=== PATIENT | female | born 1960 | race Caucasian/White ===

== ENCOUNTER → 2018-06-25 08:26 | Outpatient (CLI) | payer MEDICARE, MEDICAID ==
[2018-06-25 09:28] LABS: ALBUMIN 3.7 g/dL (3.4-5.0); BILIRUBIN - DIRECT 0.06 mg/dL (0.00-0.30); BILIRUBIN - INDIRECT 0.15 mg/dL (0.00-1.00); BILIRUBIN - TOTAL 0.21 mg/dL (0.2-1.3); PROTEIN - SERUM 7.2 g/dL (6.4-8.2)
== END | disposition home or self-care (01) ==
LOC: D.US 08:26
PROVIDERS: Internal Medicine Gastroenterology
DX: K76.0 Fatty (change of) liver, not elsewhere classified (principal)

== ENCOUNTER 2018-08-31 09:36 | Day surgery (SDC) | payer MEDICARE, MEDICAID ==
[~2018-08-31] VITALS: Ht 157.5 cm; Wt 73.2 kg
--- NOTE | ~2018-08-31 | OP ---
PATIENT NAME: MERCY NOVOA MEDICAL RECORD: [id number] :58 LOCATION:D.[facility] ADMISSION DATE: SURGEON: MANDIE MUNOZ MD DATE OF OPERATION: 08/31/2018 PROCEDURE: Colonoscopy with polypectomy, colonoscopy with biopsy. VENDING MECHANIC: Mandie Munoz MD SCOPE: Olympus video colonoscope. MEDICATIONS: Per TIVA anesthesia. The patient received 200 mg of propofol for this procedure, O2 at 2-4 liters. INDICATION FOR THE PROCEDURE: Chronic diarrhea, positive family history of colon cancer in the patient's sister, positive personal history of colon cancer in the patient, status post a subtotal colectomy with an ileoanal anastomosis 08/2016, Crohn disease of the colon diagnosed in 2013. FINDINGS: Informed consent was given. The patient was made comfortable with the above medications. After reaching an adequate level of sedation by slow IV push, the patient was placed on her left side. The rectal exam revealed good sphincter tone. No fissures or fistulas were appreciated. No external skin tags were seen. The colonoscope was advanced at least 20 cm until reaching the ileoanal anastomosis. We then proceeded to explore approximately 30 cm of small bowel, which was felt to be normal. On withdrawal of the scope, mucosa was carefully inspected. At the ileoanal anastomosis, suture lines were appreciated. The patient's rectal vault was significant for minimal inflammation and biopsies were obtained. The tissue, however, was very friable and with passage of the scope, had a slight amount of bleeding. At the recto-anal area, some raised tissue was appreciated which did appear to be polypoid in nature and cold, then hot biopsy forceps were used to obtain tissue for pathological review. Approximately 2 sites were biopsied. No internal hemorrhoids were noted. The scope was then withdrawn. IMPRESSION: 1. Mild rectal inflammation, biopsied. The patient does have a history of Crohn disease, but no active Crohn's was appreciated; however, this would be a pathologist determination. 2. The small bowel was intubated and explored for approximately 30-40 cm and normal mucosa was noted. 3. A total of 20 cm of colonic mucosa until reaching the ileoanal anastomosis. 4. Raised polypoid mucosa at the recto-anal junction. This was biopsied initially with cold biopsies to get better tissue samples and then hot biopsy forceps were used. This area did bleed very freely and the area was photocoagulated a couple of times until hemostasis was achieved. PLAN: 1. The patient should avoid all aspirin and anti-inflammatory drugs times 14 days. 2. She should have a soft diet, keep her stools soft and bulky, avoid constipation and diarrhea. 3. Use baby wipes for cleansing after bowel movements, toilet tissue might be to abrasive at this time. OPERATIVE REPORT [id number] [facility] NOVOA 4. We will check the path report. TRANSINT:[id number] Voice Confirmation ID: [id number] DOCUMENT ID: [id number] MANDIE MUNOZ MD at 1304 CC: SABRINA STOVER MD and MEL HANCOCK MD [id number] DICTATION DATE: 08/31/18 1305 MAINTENANCE MACHINIST: 08/31/18 1322 [facility] SDC 08/31/18 [id number] [place] [address]
[2018-08-31 10:02] LABS: HEMATOCRIT 38.4 % (36.0-48.0); HEMOGLOBIN 12.8 g/dL (12-16); MCH 28.3 pg (26.0-34.0); MCHC 33.3 g/dL (31.0-37.0); MEAN PLATELET VOLUME 10.7 fL (7.4-10.4); RBC 4.52 10x6/uL (4.00-5.40); RDW 14.5 % (11.5-14.5)
[2018-08-31 10:13] LABS: APTT 24.5 SECONDS (22.8-39.4); CALC OSMOLALITY 278 mosm/kg (275-300); CALCIUM 9.2 mg/dL (8.5-10.1); CARBON DIOXIDE 27.9 mmol/L (21.0-32.0); CHLORIDE - SERUM 102 mmol/L (98-107); CREATININE - SERUM 0.8 mg/dL (0.6-1.3); GLUCOSE 119 mg/dL (74-106); INR 0.97 (0.85-1.17); POTASSIUM - SERUM 3.9 mmol/L (3.5-5.1); PROTIME 12.5 SECONDS (11.6-15.0); SODIUM 140 mmol/L (136-145); UREA NITROGEN 9 mg/dL (7-18); eGFR NON AFRICAN AMERICAN 78 mL/min (90-120)
[2018-08-31] MEDS ORDERED: LOVENOX80 MG/0.8 SC (10:48)
[2018-08-31] MEDS ORDERED: COUMADIN5 MG (10:48)
[2018-08-31] MEDS ORDERED: ZOCOR40 MG PO (10:49)
[2018-08-31] MEDS ORDERED: ZOLOFT100 MG PO (10:50)
[2018-08-31] MEDS ORDERED: FENOFIBRATE160 MG PO (10:50)
[2018-08-31] MEDS ORDERED: SYMBICORT 16010.2 GM (10:51)
[2018-08-31] MEDS ORDERED: METFORMIN HCL500 M1 PO (10:51)
[2018-08-31 11:03] VITALS: Ht 157.5 cm; Wt 73.2 kg
== END 2018-08-31 13:55 | disposition home or self-care (01) ==
LOC: D.OPS 09:36
PROVIDERS: Anesthesiology
DX: K62.1 Rectal polyp (principal); K62.89 Other specified diseases of anus and rectum

== ENCOUNTER 2019-02-15 11:12 | Day surgery (SDC) | payer MEDICARE, MEDICAID ==
[~2019-02-15] VITALS: Ht 157.5 cm; Wt 75.5 kg
--- NOTE | ~2019-02-15 | OP ---
PATIENT NAME: MERCY NOVOA MEDICAL RECORD: [id number] :58 LOCATION:D.OPS ADMISSION DATE: SURGEON: LEIDY CORONA MD DATE OF OPERATION: 02/15/2019 PREOPERATIVE DIAGNOSES: 1. Questionable history of Crohn's disease. 2. History of colon cancer. 3. History of anorectal biopsies, which revealed benign mucosa with hypermucinous and serrated epithelial changes with minimal acute inflammation. There were fragments of minimally atypical epithelium. POSTOPERATIVE DIAGNOSES: 1. Questionable history of Crohn's disease. 2. History of colon cancer. 3. History of anorectal biopsies, which revealed benign mucosa with hypermucinous and serrated epithelial changes with minimal acute inflammation. There were fragments of minimally atypical epithelium. PROCEDURES: Flexible proctoscopy with biopsies and then hemostasis utilizing the argon plasma breakdown person with the right colon setting in the forced mode. SURGEON: Leidy Corona MD ARTIFICIAL LEATHER CALENDER OPERATOR: None. BLOOD LOSS: Minimal. ANESTHESIA: IV sedation. COMPLICATIONS: None. The risks, possible complications, and alternatives to the procedure were explained to the patient. She elects to proceed. ENDOSCOPIC COURSE: The patient was conveyed to the endoscopy suite electively on 02/15/2019. IV sedation was induced by the anesthesia staff. The patient was placed in the Puente position. A digital rectal examination was performed. A colonoscope was inserted through the anus. It was easily advanced to the ileorectal anastomosis, which was a low anastomosis. A retroflexed view was obtained. I noted the abnormal appearing anorectal tissue and multiple biopsies were obtained. The biopsy sites were made hemostatic with the argon plasma breakdown person. I then unretroflexed the scope and removed it under direct vision. I will see the patient in my office in 2-3 weeks. I am going to obtain an inflammatory bowel disease panel. I do not believe that this tissue represents a recurrent malignancy and more likely represents changes due to Crohn's disease. The patient is going to be dismissed home on Flagyl. I would like her to continue with Lovenox for another 2 days and then she can restart her Coumadin. TRANSINT:[id number] Voice Confirmation ID: [id number] DOCUMENT ID: [id number] OPERATIVE REPORT [id number] MER[facility] NOVOA LEIDY CORONA MD CC: RD BAILEY KOTA, MANJUSHA MD and MEL HANCOCK MD [id number] DICTATION DATE: 02/15/19 1614 VASCULAR PHYSICIAN: 02/15/191950 [facility] SDC 02/15/19 [facility] [address] [place] [address]
[~2019-02-15 11:12] MED LIST: COUMADIN5 MG; FENOFIBRATE160 MG PO; LOVENOX80 MG/0.8 SC; METFORMIN HCL500 M1 PO; SYMBICORT 16010.2 GM; ZOCOR40 MG PO; ZOLOFT100 MG PO
[2019-02-15 12:00] LABS: BASOPHILS 0.5 % (0-2); EOSINOPHILS 2.3 % (0-7); HEMOGLOBIN 12.1 g/dL (12-16); IMMATURE GRANULOCYTES 0.2 % (0-5); LYMPHOCYTES 22.2 % (15-50); MCH 29.4 pg (26.0-34.0); MCHC 33.6 g/dL (31.0-37.0); MCV 87.6 fL (80.0-100.0); MEAN PLATELET VOLUME 10.7 fL (7.4-10.4); MONOCYTES 4.2 % (2-11); NEUTROPHILS 70.6 % (40-80); PLATELET COUNT 224 10x3/uL (130-400); RBC 4.11 10x6/uL (4.00-5.40); RDW 13.7 % (11.5-14.5); WBC 6.7 10x3/uL (4.8-10.8)
[2019-02-15 12:10] LABS: CALC OSMOLALITY 277 mosm/kg (275-300); CARBON DIOXIDE 29.9 mmol/L (21.0-32.0); CHLORIDE - SERUM 103 mmol/L (98-107); CREATININE - SERUM 0.7 mg/dL (0.6-1.3); GLUCOSE 104 mg/dL (74-106); POTASSIUM - SERUM 3.6 mmol/L (3.5-5.1); SODIUM 140 mmol/L (136-145); UREA NITROGEN 10 mg/dL (7-18); eGFR NON AFRICAN AMERICAN 90 mL/min (90-120)
[2019-02-15 12:11] LABS: INR 1.01 (0.85-1.17); PROTIME 12.8 SECONDS (11.6-15.0)
[2019-02-15 12:42] VITALS: BP 133/67; Ht 157.5 cm; Wt 75.5 kg
== END 2019-02-15 17:10 | disposition home or self-care (01) ==
LOC: D.OPS 11:12
PROVIDERS: Anesthesiology; ATTEND Surgery
DX: Z85.038 Personal history of other malignant neoplasm of large intestine (principal); K62.89 Other specified diseases of anus and rectum; Z90.49 Acquired absence of other specified parts of digestive tract; Z01.812 Encounter for preprocedural laboratory examination

== ENCOUNTER → 2019-03-29 15:26 | Outpatient (CLI) | payer MEDICARE, MEDICAID ==
[2019-02-15 12:42] VITALS: BMI 30.4
== END | disposition home or self-care (01) ==
LOC: D.US 15:26
PROVIDERS: ATTEND Surgery
DX: I83.813 Varicose veins of bilateral lower extremities with pain (principal)

== ENCOUNTER 2019-07-08 07:32 | Day surgery (SDC) | payer MEDICARE, MEDICAID ==
[~2019-07-08] VITALS: Ht 157.5 cm; Wt 72.6 kg
[2019-07-08 08:00] LABS: BASOPHILS 0.9 % (0-2); EOSINOPHILS 3.6 % (0-7); HEMATOCRIT 36.3 % (36.0-48.0); HEMOGLOBIN 12.1 g/dL (12-16); IMMATURE GRANULOCYTES 0.3 % (0-5); LYMPHOCYTES 27.1 % (15-50); MCH 28.3 pg (26.0-34.0); MCHC 33.3 g/dL (31.0-37.0); MEAN PLATELET VOLUME 10.1 fL (7.4-10.4); MONOCYTES 5.6 % (2-11); NEUTROPHILS 62.5 % (40-80); PLATELET COUNT 194 10x3/uL (130-400); RBC 4.27 10x6/uL (4.00-5.40); WBC 6.8 10x3/uL (4.8-10.8)
[2019-07-08 08:20] LABS: APTT 32.8 SECONDS (22.8-39.4); INR 2.35 (0.85-1.17)
[2019-07-08] MEDS ORDERED: COUMADIN5 MG PO (08:31)
--- NOTE | 2019-07-08 08:40 | NUR ---
INR ELEVATED 2.35, VERRIFIED WITH DR. CORONA WILL CONTINUE WITH PROCEDURE PLANNED
[2019-07-08 08:53] VITALS: BP 126/67; Ht 157.5 cm; Wt 72.6 kg
--- NOTE | 2019-07-08 09:25 | NUR ---
DR. RAZA NOTIFIED AND REVIEWED PT'S BEHAVIOR AND ASSESSMENT RESULTS. PT IS A LOW RISK PER DR. RAZA. DR. RAZA STATED TO GIVE RESOURCES TO PT AT TIME OF DISCHARGE. NO FURTHER ORDERS AT THIS TIME. RESOURCES REVIEWED WITH PT ADN SHE VERBALIZED UNDERSTANDING.
[2019-07-08 09:55] LABS: CALC OSMOLALITY 284 mosm/kg (275-300); CALCIUM 8.7 mg/dL (8.5-10.1); CARBON DIOXIDE 27.4 mmol/L (21.0-32.0); CHLORIDE - SERUM 104 mmol/L (98-107); CREATININE - SERUM 0.8 mg/dL (0.6-1.3); GLUCOSE 98 mg/dL (74-106); POTASSIUM - SERUM 3.6 mmol/L (3.5-5.1); SODIUM 143 mmol/L (136-145); UREA NITROGEN 12 mg/dL (7-18); eGFR NON AFRICAN AMERICAN 77 mL/min (90-120)
--- NOTE | 2019-07-08 13:00 | NUR ---
TAKING OVER PT FROM CARLEY CASTILLO AT THIS TIME. PT IS A&OX4 IN STABLE CONDITON
--- NOTE | 2019-07-08 13:49 | NUR ---
AX ROLLS AND PILLOWS USED FOR PRONE POSITION DURING 2ND PORTION OF CASE.
--- NOTE | 2019-08-04 16:24 | OP ---
PATIENT NAME: MERCY NOVOA MEDICAL RECORD: [id number] :58 LOCATION:D.[facility] ADMISSION DATE: SURGEON: CHAPARRO CORONA MD DATE OF OPERATION: 07/08/2019 PREOPERATIVE DIAGNOSES: 1. 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 2. 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 PROCEDURES: 1. VNUS radiofrequency ablation of the bilateral greater saphenous veins. The length treated on the right was 40 cm. The length treated on the left was 42 cm. 2. Avulsion phlebectomies of bilateral lower extremities times 41. SURGEON: Chaparro Corona MD FOREST PATHOLOGIST: None. BLOOD LOSS: Please see the anesthesia sheet. COMPLICATIONS: None. The risks, possible complications and alternatives to the procedure were explained to the patient. She elects to proceed. The discussion specifically included, but was not limited to, bleeding requiring emergency reoperation, bruising, DVT, persistence or recurrence of varicosities, nerve injury, paresthesias, numbness and hyperesthesia. In the holding area, in the presence of a nurse, I had the patient stand and I marked all of the varicose veins. The patient confirmed that all the varicose veins were marked. PROCEDURE IN DETAIL: The patient was then conveyed to the operating room. General anesthesia was induced by the anesthesia staff. The bilateral lower extremities were sterilely prepped and draped. With the patient in the reverse Trendelenburg position, I percutaneously accessed the right greater saphenous vein under ultrasonographic guidance in an antegrade fashion. A guidewire passed easily. A small skin liza was accomplished. A dilator sheath was then advanced and sewn in place. Through the sheath, I advanced the radiofrequency catheter to the saphenofemoral junction. I then backed the tip off into the greater saphenous vein about 2 cm. The patient was then placed in the Trendelenburg position. Under ultrasonographic guidance, I percutaneously injected a crystalloid solution into the perivenular tissues to act as a heat sink to prevent the surrounding structures from being injured by the heat of the radiofrequency catheter. Under ultrasound, I confirmed that the radiofrequency catheter tip had not moved. I activated the radiofrequency catheter twice. With each 7 cm pullback, I activated it again. The radiofrequency catheter was then removed. The sheath was then removed. The sheath entry site was then closed with a single 4-0 Vicryl Rapide suture. The patient was then positioned in the reverse Trendelenburg position. I went OPERATIVE REPORT [id number] [facility] NOVOA around to the left side. Under ultrasonographic guidance, I percutaneously accessed the left greater saphenous vein in an antegrade fashion. A guidewire passed easily. A skin incision was accomplished. Over the guidewire, a dilator sheath was advanced. The dilator and wire were removed. Through the sheath, I advanced the radiofrequency catheter to the saphenofemoral junction. I then positioned the patient in the Trendelenburg position. I backed the radiofrequency catheter off into the greater saphenous vein about 2 cm. Under ultrasonographic guidance, I percutaneously injected a crystalloid solution into the perivenular tissues in order to act as a heat sink so that the surrounding structures would not be damaged by the heat of the radiofrequency catheter. I then positioned the patient in the Trendelenburg position. I confirmed under ultrasound that the tip of the catheter had not moved. I activated the radiofrequency catheter twice. With each 7 cm pullback, I activated it again. The radiofrequency catheter was then removed. The sheath was then removed. The sheath entry site was closed with a single horizontal mattress 4-0 Vicryl Rapide suture. The length of the greater saphenous veins treated is listed above. Small skin incisions were accomplished over the varicose veins. I then performed avulsion phlebectomies utilizing a phlebectomy hook. The patient was then positioned in the prone position. The lower extremities were sterilely prepped and draped. Through small skin nicks, I performed avulsion phlebectomies utilizing the phlebectomy hook. This was done through small skin incisions. At no time during the entire process was there any apparent nerve injury. The patient was then positioned supine. Both lower extremities were wrapped with a gauze over the phlebectomy sites and then a Coban wrap. The patient was then extubated and conveyed to the post-anesthesia care unit where she was in stable condition. She will be dismissed home on a narcotic analgesic. I will see her in the office in 3 days. At that time, we will remove the dressings. TRANSINT:[id number] Voice Confirmation ID: [id number] DOCUMENT ID: [id number] CHAPARRO CORONA MD at 1624 CC: [id number] DICTATION DATE: 08/03/19 1046 STRATEGIC CLIENT EXECUTIVE: 08/03/19 1421 [facility] 07/08/19 [address] [place] [address] [place] [id number]
== END 2019-07-08 14:45 | disposition home or self-care (01) ==
LOC: D.OPS 07:32 → D.PAN 09:15 → D.OPS 09:45 → D.PAN 09:45 → D.OPS 14:45
PROVIDERS: Anesthesiology; ATTEND Surgery
DX: I87.2 Venous insufficiency (chronic) (peripheral) (principal)

== ENCOUNTER 2020-06-18 06:08 | Day surgery (SDC) | payer MEDICARE, MEDICAID ==
[~2020-06-18] VITALS: Ht 157.5 cm; Wt 76.8 kg
[~2020-06-18 06:08] MED LIST changes: +COUMADIN5 MG PO
[2020-06-18 06:51] LABS: ANION GAP 11.4 mmol/L (8-16); CALCIUM 8.9 mg/dL (8.5-10.1); CARBON DIOXIDE 29.2 mmol/L (21.0-32.0); CREATININE - SERUM 0.9 mg/dL (0.6-1.3); POTASSIUM - SERUM 3.6 mmol/L (3.5-5.1)
[2020-06-18 07:43] LABS: BASOPHILS 0.7 % (0-2); EOSINOPHILS 4.7 % (0-7); HEMATOCRIT 40.4 % (36.0-48.0); HEMOGLOBIN 12.8 g/dL (12-16); IMMATURE GRANULOCYTES 0.1 % (0-5); LYMPHOCYTES 24.9 % (15-50); MCHC 31.7 g/dL (31.0-37.0); MCV 85.2 fL (80.0-100.0); MEAN PLATELET VOLUME 11.2 fL (7.4-10.4); MONOCYTES 5.6 % (2-11); PLATELET COUNT 228 10x3/uL (130-400); RBC 4.74 10x6/uL (4.00-5.40); RDW 14.4 % (11.5-14.5); WBC 6.8 10x3/uL (4.8-10.8)
[2020-06-18 08:02] VITALS: BP 154/55; Ht 157.5 cm; Wt 76.8 kg
--- NOTE | 2020-06-18 09:23 | NUR ---
DC INSTRUCTIONS GIVEN TO PT/FAMILY. STATE UNDERSTANDING. DC'D IV CATH FULLY INTACT. WILL DC PT SHORTLY
--- NOTE | 2020-06-18 09:28 | NUR ---
PT LEFT UNIT VIA WC AT 8308
--- NOTE | 2020-06-18 20:26 | OP ---
PATIENT NAME: MERCY NOVOA MEDICAL RECORD: [id number] :58 LOCATION:D.OPS ADMISSION DATE: SURGEON: SUZI STERN DO DATE OF OPERATION: 06/18/2020 PROCEDURE: Colonoscopy. INDICATIONS FOR PROCEDURE: Chronic diarrhea, lower abdominal pain, history of Crohn's disease diagnosed in 2013, family history of colon cancer in the patient's sister, and a personal history of colon cancer diagnosed in August 2016, status post subtotal colectomy with ileoanal anastomosis. SCOPE: [employer] video pediatric colonoscope. MEDICATIONS: Propofol 160 mg IV per anesthesia. ESTIMATED BLOOD LOSS: None. COMPLICATIONS: None. FINDINGS: Informed consent was given. The patient was made comfortable with the above medication. After reaching an adequate level of sedation by slow IV push, the patient was placed on her left side. A digital rectal examination was performed and was normal. The endoscope was then advanced under direct visualization through the rectum into the terminal ileum and advanced approximately 40 cm beyond the ileoanal anastomosis. The endoscope was then withdrawn while the mucosa was carefully inspected. There was no evidence of active Crohn's disease. An ileoanal anastomosis was encountered at approximately 15 cm. The rectal pouch appeared normal in its entirety. There were no polyps or abnormalities visualized. Retroflexion was performed in the rectum with a normal appearing rectal wall. The endoscope was withdrawn from the patient. The patient tolerated the procedure well and there were no complications. IMPRESSION: Normal appearance of the rectal pouch and terminal ileum with evidence of an ileoanal anastomosis at 15 cm. PLAN AND RECOMMENDATIONS: 1. Discharge home when recovery parameters are met. 2. High fiber diet. 3. Continue current medications. 4. 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 TRANSINT:[id number] Voice Confirmation ID: [id number] DOCUMENT ID: [id number] SUZI STERN DO at 2026 CC: [id number] DICTATION DATE: 06/18/20856 [employer] AND CAR[employer] SUPERVISOR: 06/18/201952 [facility] 06/18/20 [address] [place] [address]
== END 2020-06-18 09:32 | disposition home or self-care (01) ==
LOC: D.OPS 06:08
PROVIDERS: Anesthesiology; ATTEND Internal Medicine Gastroenterology
DX: K52.9 Noninfective gastroenteritis and colitis, unspecified (principal); R10.30 Lower abdominal pain, unspecified; K50.90 Crohn's disease, unspecified, without complications; Z85.038 Personal history of other malignant neoplasm of large intestine; E11.9 Type 2 diabetes mellitus without complications; Z79.84 Long term (current) use of oral hypoglycemic drugs